=== PATIENT | female | born 1990 | race Caucasian/White ===

== ENCOUNTER 2016-12-22 13:04 | Inpatient (IN) | payer OTHER ==
--- NOTE | ~2016-12-22 | DS ---
Unit #: [id number] #: [id number] Patient: RUFUS ALDRICH [id number] [facility] [address] [place] [address] [id number] I MR#: [id number] NAME: RUFUS ALDRICH ROOM: 63 Age: 26 Sex: F Admission Date: 12/22/2016 : 1990 Discharge Date: Attending Physician: Lulu Crawley M.D. Primary Care Physician: Primary Care Physician No DISCHARGE SUMMARY IDENTIFYING DATA Ms. Aldrich is a 26-year-old single white female, who is currently 5-1/2 months and was self-referred to the hospital. DISCHARGE DIAGNOSES Psychiatric: Bipolar disorder, most recent episode depressed, recurrent, moderate, with psychosis. Medical: None. Stressors: Moderate psychosocial stressors. HISTORY OF PRESENT ILLNESS Please see initial psychiatric evaluation for details. PAST PSYCHIATRIC HISTORY Please see initial psychiatric evaluation for details. PAST MEDICAL HISTORY Please see initial psychiatric evaluation for details. HOSPITAL COURSE The patient [facility] and was oriented to the hospital environment. Routine p.r.n. medications were initiated and she was started back on her home treatment program; however, in light of her being , Latuda as a mood stabilizer and antipsychotic with safest efficacy in population was initiated and she was closely monitored. She was taking the medications regularly and was tolerating them fairly well and was able to show a decent therapeutic response and was denying any suicidal or homicidal ideations and was also denying any hallucination, wanting to go back to her longterm, was willing to continue treatment on an outpatient basis and as such, it was decided that she will be discharged home and will continue treatment on an outpatient basis. DISCHARGE MEDICATIONS Latuda 40 mg in the evening for psychosis. DISCHARGE CONDITION Stable. PROGNOSIS Fair. Unit #: [id number] #: [id number] Patient: RUFUS ALDRICH Dictated by... Lulu Crawley M.D. IAA/modl TD: 12/26/2016 07:15 JOB #: [id number] DISCHARGE SUMMARY Page 1 of 1 X Lulu Crawley MD DISCHARGE SUMMARY
--- NOTE | ~2016-12-22 | HP ---
Unit #: [id number] #: [id number] Patient: FANG ALDRICH [id number] [place] [address] [id number] MR#: [id number] NAME: FANG ALDRICH ROOM: P263 Age: 26 Sex: F Admission Date: 12/22/2016 : 1990 Attending Physician: Lulu Crawley M.D. Admitting Physician: Lulu Crawley M.D. Primary Care Physician: Primary Care Physician No HISTORY AND PHYSICAL HISTORY OF PRESENT ILLNESS Fang is a 26 year old admitted to [address] [place] [address] with depression and verbalizing wanting to hurt herself. PAST MEDICAL HISTORY 1. Long history of opioid abuse. She has been clean for a year. 2. Patient is 5-1/2 months . PAST SURGICAL HISTORY Nothing reported. ALLERGIES No known drug allergies. SOCIAL HISTORY Smokes 1/2 pack per day. Denies alcohol. Has a history of opioid abuse but has been clean for a year. FAMILY HISTORY Medically noncontributory. REVIEW OF SYSTEMS CONSTITUTIONAL: No fever or chills. HEENT: Denies any sore throat, ear pain or runny nose. CARDIOVASCULAR: Denies chest pain, irregular heart rhythm or palpitations. CHEST: Denies shortness of breath or cough. No hemoptysis. GASTROINTESTINAL: Denies nausea, vomiting, diarrhea or chronic constipation. ENDOCRINE: Denies history of increased thirst or urination. No recent significant weight loss or gain. GENITOURINARY: Denies dysuria, frequency, or hematuria. SKIN: Denies any rashes. HEMATOLOGIC: Denies history of increased bleeding or bruising. MUSCULOSKELETAL: Denies any hot, swollen joints. No generalized muscle pain. NEUROLOGIC: Denies problems with vision or speech. No frequent, severe headaches. No numbness, tingling or weakness in any extremities. Denies loss of bladder or bowel control. CURRENT MEDICATIONS 1. Melatonin 9 mg q.h.s. p.r.n. 2. Milk of Magnesia p.r.n. 3. Maalox p.r.n. Unit #: [id number] #: [id number] Patient: FANG ALDRICH 4. Tylenol p.r.n. PHYSICAL EXAMINATION GENERAL: Alert, well-nourished, in no apparent distress. VITAL SIGNS: Blood pressure 124/76, heart rate 100, respirations 16, temperature 98.6. WEIGHT: 145. HEIGHT: 5 feet 1 inch. SKIN: Warm and dry without rash or lesion. HEENT: Normocephalic. TMs not viewed. Oral and nasal passages clear. Conjunctivae clear. PERRLA. EOMs intact. NECK: Supple without lymphadenopathy or thyromegaly. HEART: Regular rate and rhythm without murmur. LUNGS: Clear. ABDOMEN: Patient appears 5 to 6 months . : Not done. EXTREMITIES: No evidence of cyanosis, clubbing or edema. Moves all without focal deficit. NEUROLOGICAL: Grossly within normal limits. Cranial Nerves: II: Visual holt are intact. III, IV AND : Extraocular movements are intact. Pupils are equal, round and reactive to light. V: Facial sensation is grossly normal. VII: Facial movements and expression are normal. VIII: Auditory acuity grossly intact. IX, X: Uvula is midline. Phonation is normal. XI: Patient shrugs shoulders and turns head normally. XII: Tongue protrudes in the midline. Sensory and Motor Function: Sensory and motor sensation is grossly normal. Motor: moves all extremities well. Coordination: Gait is normal. Deep Tendon Reflexes: Intact. IMPRESSION Psychiatric admission. RECOMMENDATIONS PSYCHIATRIC: Per psychiatrist. MEDICAL: See no contraindications to participate in facility's activities. MEDICAL PROGNOSIS Good. MEDICAL CONDITION Stable. Dictated by... Irish Rodriguez P.A.-C. for Pollo Rebollar/sissy TD: 12/22/2016 20:02 JOB #: [id number] Unit #: [id number] #: [id number] Patient: FANG ALDRICH HISTORY AND PHYSICAL Page 1 of 1 X Irish Rodriguez HISTORY AND PHYSICAL
--- NOTE | ~2016-12-22 | PN ---
Unit #: [id number] #: [id number] Patient: RUFUS ALDRICH [id number] [facility] [address] [place] [address] [id number] I MR#: [id number] NAME: RUFUS ALDRICH ROOM: P263 Age: 26 Sex: F Admission Date: 12/22/2016 : 1990 Attending Physician: Lulu Crawley M.D. Admitting Physician: Lulu Crawley M.D. Primary Care Physician: Primary Care Physician Merline FITZGERALD NOTES DATE 12/25/2016 DISCUSSION Ms. Aldrich is a 26-year-old white female with mood disorder who is currently has been on Latuda reports doing fairly well and has been taking medication and tolerating them fairly well with no reported side effects. MENTAL STATUS EXAMINATION Young white female who was casually dressed with fair personal hygiene, appears to be in no acute distress or discomfort. She was awake and alert on interaction with intact orientation. Her mood was anxious with congruent affect. She denies any suicidal or homicidal ideations. Her insight and judgement remains slightly impaired. TREATMENT PLAN We will continue her on her current treatment protocol. We will monitor her response to the medication and make further adjustments as needed. Dictated by... Pollo King/salvador TD: 12/26/2016 22:30 JOB #: [id number] [facility] PROGRESS NOTES Page 1 of 1 X Lulu Crawley MD PROGRESS NOTE
--- NOTE | ~2016-12-22 | PN ---
Unit #: [id number] #: [id number] Patient: RUFUS ALDRICH [id number] [facility] [address] [place] [address] [id number] I MR#: [id number] NAME: RUFUS ALDRICH. ROOM: P263 Age: 26 Sex: F Admission Date: 12/22/2016 : 1990 Attending Physician: Lulu Crawley M.D. Admitting Physician: Lulu Crawley M.D. Primary Care Physician: Primary Care Physician Merline FITZGERALD NOTES DATE 12/24/2016 DISCUSSION Ms. Aldrich is a 26-year-old white female who was seen today and chart was reviewed and case was discussed with the staff. She has been anxious, withdrawn though has not shown any agitation, irritability and has been cooperative with treatment recommendations as she has been taking the medications and tolerating them fairly well with no reported side effects. MENTAL STATUS EXAMINATION Young white female who was casually dressed with fair personal hygiene, appears to be in no acute distress or discomfort. She was awake and alert with intact orientation. Her mood was anxious with congruent affect. She denies any suicidal or homicidal ideations. Her insight and judgement remains slightly impaired. TREATMENT PLAN 1. We will continue her on her current medications and treatment protocol. We will monitor her response to the medication and make further adjustments as needed. 2. We will continue to follow up. Dictated by... Pollo King/salvador TD: 12/26/2016 02:29 JOB #: [id number] Unit #: [id number] #: [id number] Patient: RUFUS ALDRICH CLA[facility] PROGRESS NOTES Page 1 of 1 X Lulu Crawley MD PROGRESS NOTE
--- NOTE | ~2016-12-22 | PN ---
Unit #: [id number] #: [id number] Patient: RUFUS ALDRICH [id number] [facility] [address] [place] [address] [id number] I MR#: [id number] NAME: RUFUS ALDRICH. ROOM: P263 Age: 26 Sex: F Admission Date: 12/22/2016 : 1990 Attending Physician: Lulu Crawley M.D. Admitting Physician: Lulu Crawley M.D. Primary Care Physician: Primary Care Physician Merline WILKINS PROGRESS NOTES DATE 12/23/2016 DISCUSSION Ms. Aldrich is a 26-year-old white female who was seen today and chart was reviewed and case was discussed with the staff. She has been anxious, withdrawn and rather seclusive to herself. Meanwhile, she has been cooperative with treatment recommendations and has been taking medications and tolerating them fairly well with no reported side effects. MENTAL STATUS EXAMINATION Young white female who was casually dressed with fair personal hygiene and appears to be in no acute distress or discomfort. She was awake and alert on interaction with intact orientation. Her mood was anxious and depressed with congruent affect. Her speech is slow and goal-directed. She denies any suicidal or homicidal ideation. Her insight and judgement remains slightly impaired. TREATMENT PLAN 1. Will continue on current treatment protocol. Will make further adjustments and monitor response. 2. Will continue to follow up. Dictated by... Pollo King/sissy TD: 12/23/2016 23:02 JOB #: [id number] Unit #: [id number] #: [id number] Patient: RUFUS ALDRICH PEA[facility]ISON PROGRESS NOTES Page 1 of 1 X Lulu Crawley MD PROGRESS NOTE
--- NOTE | ~2016-12-22 | PA ---
Unit #: [id number] #: [id number] Patient: RUFUS ALDRICH [id number] [facility] [address] [place] [address] [id number] I MR#: [id number] NAME: RUFUS ALDRICH ROOM: P263 Age: 26 Sex: F Admission Date: 12/22/2016 : 1990 Date of Assessment: Attending Physician: Lulu Cralwey M.D. Admitting Physician: Lulu Crawley M.D. PSYCHIATRIC ASSESSMENT DATE OF SERVICE 12/22/2016 IDENTIFYING DATA Ms. Aldrich is a 26-year-old single white female, who is a resident of [place], [place] and was self-referred to the hospital on a voluntary basis. CHIEF COMPLAINT "I brought myself in due to having hallucinations lately." HISTORY OF PRESENT ILLNESS Ms. Aldrich is a 26-year-old white female, who was self-referred to the hospital, stating that she has been having hallucination, "I'm seeing things like shadows blacking out in my vision, quick flashes, see a face on wall like shadow face, hearing voices in my head and nothing distinct, I think someone is sitting next to me. If I hear someone, it is in my head, hearing sounds or single words. By myself it is worse if I am napping, I might hear my mom and sister say something and they are not there. It has been going on for about 5 years, but it has been getting worse lately. I am seeing blurs in my vision and one eye will go black, shadows on the wall and has been since I was a kid. My long-term house made an appointment for me, my counselor has indicated the need to get an assessment as I did as well. This is not depression or anxiety, there is something mentally wrong in my head. "I have not been on medications before and this is the first time that I have spiraled out like this. More distinguished things that happening." The patient reports increasing psychosis and stress and feels disturbed and denies any suicidal thoughts, but there are moments that she would commit suicide, "I felt this way the last 5 months. The [facility] has given me structure. I was triggered by symptoms, I feel suicidal, I don't recognize others, I think I am changing inside like different personalities. SUBSTANCE ABUSE HISTORY The patient reports history of experimentation with alcohol, cannabis, and opioids, and reports that she has been taking pain pills on daily basis and has been smoking a blunt on daily basis, and has been drinking a pint of liquor a day. PAST PSYCHIATRIC HISTORY The patient has had history of inpatient psychiatric hospitalization at [facility] few times in addition to being at [facility], [facility], and a [facility]. Review of the medical records indicate Unit #: [id number] #: [id number] Patient: RUFUS ALDRICH currently she is not active in any treatment program, is not seeing a psychiatrist, and is not taking any psychotropic medications. PAST MEDICAL HISTORY The patient reports that she is currently 5-1/2 months . PERSONAL AND SOCIAL HISTORY A 26-year-old white female, who reports that she is single, unemployed, and currently is a living at [facility]. MENTAL STATUS EXAMINATION Middle-aged white female, who was casually dressed with fair personal hygiene, appears to be in no acute distress or discomfort. She was awake and alert on interaction with intact orientation to time, place, and person. Her mood was anxious and depressed with a congruent affect. Her speech was slow and restricted in content. Her thought processes were disorganized with some looseness of associations and flight of ideas and auditory and visual hallucinations and paranoid ideations and suicidal ideations. Her insight and judgment remain significantly impaired. DIAGNOSTIC IMPRESSION Psychiatric: Bipolar disorder, most recent episode depressed, recurrent, moderate, with psychosis; alcohol dependence, moderate; opioid dependence, moderate; cannabis dependence, moderate. Medical: None. Stressors: Moderate psychosocial stressors. TREATMENT PLAN 1. The patient has presented with a history of mood disorder and psychosis and has been decompensating with increasing psychosis and we will recommend inpatient hospitalization for safety and stabilization. We will consider a trial of an antipsychotic that will be safe for . 2. Supportive therapy was provided to the patient. ESTIMATED LENGTH OF STAY 5 to 7 days. ABILITY TO HELP SELF Limited. WILLINGNESS TO HELP SELF The patient appears to be willing to help self. STRENGTHS 1. Communicative. 2. Cooperative. PROBLEMS 1. Chronic dysphoric symptoms. 2. Poor social support system. DISCHARGE CRITERIA This will be contingent upon the patient's ability to show resolution of her depression and psychosis, and her ability to stay safe to herself, particularly after discharge from the hospital. Dictated by... Unit #: [id number] #: [id number] Patient: RUFUS ALDRICH Pollo King/gregorial TD: 12/23/2016 07:55 JOB #: [id number] PSYCHIATRIC ASSESSMENT Page 1 of 1 X Lulu Crawley MD X PSYCHIATRIC ASSESSMENT
[2016-12-23 09:47] LABS: BASOPHIL% 0.2 % (0-2.5); EOSINOPHIL# 0.1 X10e3 (0-0.7); HEMATOCRIT 33.1 % (35.0-45.0); HEMOGLOBIN 11.2 gm/dL (12.0-16.0); LYMPHOCYTE# 1.7 X10e3 (1.0-3.5); LYMPHOCYTE% 17.6 % (17.0-45.0); MEAN CELL VOLUME 93.5 FL (83-96); MEAN CORPUSCULAR HEMOGLOBIN 31.6 PG (28-34); MEAN CORPUSCULAR HGB CONC 33.8 g/dL (30-36); MEAN PLATELET VOLUME 7.7 FL (6.5-11.5); MONOCYTE# 0.7 X10e3 (0-1.0); MONOCYTE% 6.9 % (3.0-12.0); NEUTROPHIL# 7.2 X10e3 (1.5-7.1); NEUTROPHIL% 74.3 % (40-75); PLATELET COUNT 214 X10e3 (140-420); RED BLOOD COUNT 3.54 X10e (3.90-5.30); RED CELL DISTRIBUTION WIDTH 13.3 % (11.0-15.5); WHITE BLOOD COUNT 9.7 X10e3 (4.0-10.5)
[2016-12-23 09:53] LABS: DIFF IND NO
[2016-12-23 10:05] LABS: THYROID STIMULATING HORMONE 1.32 uIU/ml (0.34-5.60)
[2016-12-23 10:14] LABS: FREE THYROXIN (T4) 0.59 ng/dL (0.58-1.64)
[2016-12-23 10:28] LABS: BILIRUBIN,TOTAL 0.6 mg/dL (0.2-2.0); CALCIUM SERUM 8.2 mg/dL (8.4-10.2); CREATININE SERUM 0.5 mg/dL (0.6-1.4); GLOM FILT RATE Estimated 131.7 mL/min (>60); POTASSIUM 4.3 mmol/L (3.5-5.1); PROTEIN TOTAL SERUM 5.8 g/dL (6.0-8.3)
[2016-12-23 12:47] LABS: URINE APPEARANCE CLEAR; URINE BILIRUBIN NEG (NEG); URINE BLOOD NEG (NEG); URINE COLOR DK YELLOW; URINE GLUCOSE NEG (NEG); URINE KETONE NEG (NEG); URINE LEUKOCYTE ESTERASE NEG (NEG); URINE NITRATE NEG (NEG); URINE PH 6.5 (5-8); URINE PROTEIN NEG (NEG); URINE SPECIFIC GRAVITY 1.029 (1.003-1.035)
[2016-12-23 13:30] LABS: AMPHETAMINE NEG (NEG); BARBITURATES NEG (NEG); BENZODIAZEPINES NEG (NEG); COCAINE NEG (NEG); MARIJUANA NEG (NEG); OPIATES NEG (NEG); TRICYCLIC ANTIDEPRESSANTS NEG (NEG); U METHADONE NEG (NEG)
== END 2016-12-26 11:45 | disposition home or self-care (01) | DRG 781 ==
LOC: P2L 13:04
PROVIDERS: Psychiatry & Neurology Psychiatry
DX: O99.342 Other mental disorders complicating pregnancy, second trimester (principal); F31.5 Bipolar disorder, current episode depressed, severe, with psychotic features; F11.20 Opioid dependence, uncomplicated; O99.322 Drug use complicating pregnancy, second trimester; F10.20 Alcohol dependence, uncomplicated; F12.20 Cannabis dependence, uncomplicated
CPT/HCPCS: 80053; 80307; 81003; 84439; 84443; 85025